=== PATIENT | female | born 1950 | race Caucasian/White ===

== ENCOUNTER 2018-03-22 20:58 | Emergency (ER) | payer MEDICARE, OTHER ==
[2018-03-22] MEDS: FAMOTIDINE 20 MG INJ IV (23:04)
[2018-03-22] MEDS: DIPHENHYDRAMINE 50 MG INJ IV (23:04)
[2018-03-22] MEDS: SOD CHLORIDE 0.9% 1,000 ML IV (23:05)
[2018-03-22] MEDS: METHYLPREDNISOLONE 125 MG INJ IV (23:05)
== END 2018-03-23 00:26 | disposition home or self-care (01) ==
LOC: FTE 03-23 00:26
DX: R21 Rash and other nonspecific skin eruption (principal); I10 Essential (primary) hypertension
CPT/HCPCS: 96374; 96375; 99284-25